=== PATIENT | male | born 1995 | race Two or more races ===

== ENCOUNTER 2016-07-13 12:46 | Emergency (ER) | payer OTHER ==
[2016-07-13 12:56] VITALS: TEMP 98.1
--- NOTE | 2016-07-13 12:58 | EDPHY ---
H & P Stated Complaint: CP starting at noon radiating to left neck, SOB Time Seen by Provider: 07/13/16 12:58 - Personal History Current Tetanus/Diphtheria Vaccine: Yes Current Tetanus Diphtheria and Acellular Pertussis (TDAP): Yes Tetanus Vaccine Date: < 10 years - Medical/Surgical History Hx Asthma: No Hx Chronic Respiratory Disease: No Hx Diabetes: No Hx Cardiac Disease: No Hx Renal Disease: No Hx Cirrhosis: No Hx Alcoholism: No Hx HIV/AIDS: No Hx Splenectomy or Spleen Trauma: No Other PMH: Denies - Social History Smoking Status: Never smoked Constitutional: Initial Vital Signs Temperature (C) 36.7 C 07/13/16 12:46 Heart Rate 81 07/13/16 12:46 Respiratory Rate 20 07/13/16 12:46 Blood Pressure 167/91 H 07/13/16 12:46 O2 Sat (%) 95 07/13/16 12:46 O2 Delivery Mode Room Air Allergies/Adverse Reactions: No Known Allergies Allergy (Verified 07/13/16 12:53) Home Medications: Medication Instructions Recorded Ibuprofen [Motrin] 800 mg PO Q8 #20 tab 07/13/16 Medical Decision Making ED Course/Re-evaluation: CHIEF COMPLAINT: Chest pain. HISTORY OF PRESENT ILLNESS: The patient is a 20-year-old male who presents via EMS with sharp left-sided chest pain that began an hour and a half ago and has been worsening since onset. The pain is worsened with lying flat and deep breathing. He denies recent sickness, cough, cold, recent trauma, shortness of breath, medication changes, or other complaints. REVIEW OF SYSTEMS: A 10 point review of systems was performed and is negative with the exception of the elements mentioned in the history of present illness. PHYSICAL EXAM: HR, BP, O2 Sat, RR. Temp noted General Appearance: Alert, well hydrated, appropriate, and non-toxic appearing. Head: Atraumatic without scalp tenderness or obvious injury Eyes: Pupils equal, round, reactive to light and accommodation, EOMI, no trauma , no injection. Ears: Clear bilaterally, no perforation, normal landmarks Nose: Atraumatic, no rhinorrhea, clear. Throat: There is no erythema or exudates, no lesions, normal tonsils, mucus membranes moist. Neck: Supple, 2+ carotid upstroke, nontender, no lymphadenopathy. Respiratory: No retractions, no distress, no wheezes, and no accessory muscle use. Lungs are clear to auscultation bilaterally. Cardiovascular: Regular rate and rhythm, no murmurs, or gallops. Bilateral carotid, radial, dorsalis pedis, and posterior tibial pulses intact. Good capillary refill all extremities. Friction rub when lying flat Gastrointestinal: Abdomen is soft, nontender, non-distended, no masses, no rebound, no guarding, no peritoneal signs. Musculoskeletal: Normal active ROM of all extremities, atraumatic. Neurological: Alert, appropriate, and interactive. The patient has normal DTRs and non-focal cranial nerves, motor, sensory, and cerebellar exam. Skin: No rashes, good turgor, no nodules on palpation. Past medical history: Denies. Past surgical history: Denies. Family history: No pertinent history. Social history: [employer] Student. DIAGNOSTICS/PROCEDURES/CRITICAL CARE TIME: The 12 lead EKG was interpreted by myself. See hard copy and/or "tracemaster" electronic copy for interpretation. Sinus rhythm. Early repolarization vs. diffuse ST elevation consistent with pericarditis. DIFFERENTIAL DIAGNOSIS: The differential diagnosis for the patient's chest pain included but was not limited to myocardial ischemia, pulmonary embolus, chest wall pain, pleural inflammation, and pulmonary infectious causes. MEDICAL DECISION MAKIN-year-old male presents with chest pain. When I lie him flat the pain is 7/10 and is resolves to a 3/10 when he sits forward. On exam I hear a friction rub that is worse when he lies flat. I am suspicious for pericarditis. An EKG has been ordered. An IV was established and labs ordered. 30mg IV Toradol administered for pain. EKG shows diffuse ST elevation consistent with pericarditis. He is also exhibiting some possible early repolarization. Chest x-ray ordered. Lab work is unremarkable. 1426: Consulted with Dr. Sher. He agrees with diffuse ST He does not recommend colchicine treatment for a first-time pericarditis. 1439: Dr. Sher has read the echocardiogram as negative. The patient will be discharged with cardiology follow up and Ibuprofen instructions. I discussed these results and the plan with him at this time. He is comfortable with the plan. - Data Points Laboratory Results: Laboratory Results 07/13/16 12:48 07/13/16 12:48 07/13/16 07/13/16 12:48 12:48 WBC 7.93 10^3/uL 10^3/uL (3.80-9.50) RBC 5.37 10^6/uL 10^6/uL (4.40-6.38) Hgb 16.7 g/dL g/dL (13.7-17.5) Hct 47.0 % % (40.0-51.0) MCV 87.5 fL fL (81.5-99.8) MCH 31.1 pg pg (27.9-34.1) MCHC 35.5 g/dL g/dL (32.4-36.7) RDW 13.5 % % (11.5-15.2) Plt Count 249 10^3/uL 10^3/uL (150-400) MPV 9.6 fL fL (8.7-11.7) Neut % (Auto) 58.8 % % (39.3-74.2) Lymph % (Auto) 30.1 % % (15.0-45.0) Gentry % (Auto) 8.2 % % (4.5-13.0) Eos % (Auto) 1.9 % % (0.6-7.6) Baso % (Auto) 0.6 % % (0.3-1.7) Nucleat RBC Rel Count 0.0 % % (0.0-0.2) Absolute Neuts (auto) 4.66 10^3/uL 10^3/uL (1.70-6.50) Absolute Lymphs (auto) 2.39 10^3/uL 10^3/uL (1.00-3.00) Absolute Monos (auto) 0.65 10^3/uL 10^3/uL (0.30-0.80) Absolute Eos (auto) 0.15 10^3/uL 10^3/uL (0.03-0.40) Absolute Basos (auto) 0.05 10^3/uL 10^3/uL (0.02-0.10) Absolute Nucleated RBC 0.00 10^3/uL 10^3/uL (0-0.01) Immature Gran % 0.4 % % (0.0-1.1) Immature Gran # 0.03 10^3/uL 10^3/uL (0.00-0.10) Sodium 141 mEq/L mEq/L (134-144) Potassium 3.9 mEq/L mEq/L (3.5-5.2) Chloride 100 mEq/L mEq/L (97-110) Carbon Dioxide 27 mEq/l mEq/l (22-31) Anion Gap 14 mEq/L mEq/L (8-16) BUN 14 mg/dL mg/dL (7-23) Creatinine 1.0 mg/dL mg/dL (0.7-1.3) Estimated GFR > 60 Glucose 87 mg/dL mg/dL (70-100) Calcium 10.0 mg/dL mg/dL (8.5-10.4) Troponin I < 0.012 ng/mL ng/mL (0-0.034) Medications Given: Discontinued Medications Ketorolac Tromethamine (Toradol) 30 mg IVP EDNOW ONE Stop: 07/13/16 13:30 Last Admin: 07/13/16 13:37 Dose: 30 mg Departure - Departure Disposition: Home, Routine, Self-Care Clinical Impression: Pericarditis Qualifiers: Pericarditis type: unspecified type Chronicity: acute Qualified Code(s): I30.9 - Acute pericarditis, unspecified Condition: Good Instructions: Acute Pericarditis (ED) Additional Instructions: Call Dr. Sher, cardiology, today to set up a follow up appointment. Take 800mg Ibuprofen 3 times daily as needed for pain. Avoid strenuous activity until your symptoms subside (usually 7-10 days). Return for any serious worsening of condition. Referrals: Reyes Sher MD [Medical Doctor] - As per Instructions Prescriptions: Ibuprofen [Motrin] 800 mg PO Q8 #20 tab Report Scribed for: Artis Muñoz Report Scribed by: Miles Macedo Date of Report: 07/13/16 Time of Report: 13:37
[2016-07-13] MEDS ORDERED: KETOROLAC 30 MG/1 ML SDV IVP ONE (13:29)
[2016-07-13 13:33] LABS: % IMMATURE GRANULYOCYTES 0.4 % (0.0-1.1); ABSOLUTE IMMATURE GRANULOCYTES 0.03 10^3/uL (0.00-0.10); ADD DIFF? NO; ADD MORPH? NO; ADD SCAN? NO; ATYPICAL LYMPHOCYTE FLAG 20 (0-99); FRAGMENT RBC FLAG 0 (0-99); HEMOGLOBIN 16.7 g/dL (13.7-17.5); LEFT SHIFT FLG 10 (0-99); LIPEMIA HEMOLYSIS FLAG 90 (0-99); MEAN CELL HEMOGLOBIN 31.1 pg (27.9-34.1); MEAN CELL HEMOGLOBIN CONCENTR. 35.5 g/dL (32.4-36.7); MEAN CELL VOLUME 87.5 fL (81.5-99.8); MEAN PLATELET VOLUME 9.6 fL (8.7-11.7); PLATELET CLUMPS FLAG 0 (0-99); PLATELET COUNT 249 10^3/uL (150-400); RED BLOOD CELL COUNT 5.37 10^6/uL (4.40-6.38); RED CELL DISTRIBUTION WIDTH 13.5 % (11.5-15.2)
--- NOTE | 2016-07-13 13:35 | CPEKG ---
Heart Rate: 74 RR Interval: 811 P-R Interval: 148 QRSD Interval: 94 QT Interval: 372 QTC Interval: 413 P Livingston: 67 QRS Livingston: 72 T Wave Livingston: 50 EKG Severity - BORDERLINE ECG - EKG Impression: SINUS RHYTHM EKG Impression: BORDERLINE Q WAVES IN LATERAL LEADS EKG Impression: INFERIOR Q WAVES, PROBABLY NORMAL VARIATION Electronically Signed By: Artis Muñoz 13-Jul-2016 21:07:19
[2016-07-13 13:39] LABS: ANION GAP 14 mEq/L (8-16); CARBON DIOXIDE 27 mEq/l (22-31); CHLORIDE 100 mEq/L (97-110); GLOMERULAR FILTRATION RATE > 60; GLUCOSE 87 mg/dL (70-100); POTASSIUM 3.9 mEq/L (3.5-5.2); SODIUM 141 mEq/L (134-144)
[2016-07-13 13:51] LABS: TROPONIN I < 0.012 ng/mL (0-0.034)
--- NOTE | 2016-07-13 14:39 | ECHO ---
[id number] + + [id number] : : [place] [address] : : [phone] + Adult Echocardiographic Report + ----+ :Name: LUIS CARLOS SARKAR MStudy Date: 07/13/2016 02:08 PM : : Hospital Admission Number: [id number] Location : ER: :: 1995 Gender: Male : :Age: 20 yrs Race: OTH : :Reason For Study: Eval LV Fx : :History: Chest Pain : + ----+ MMode/2D Measurements \T\ Calculations IVSd: 0.78 cm LVIDd: 4.6 cm FS: 40.5 % Ao root diam: 3.0 cm LVPWd: 0.86 cm LVIDs: 2.7 cm EDV(Teich): 96.8 ml ACS: 2.0 cm ESV(Teich): 27.8 ml EF(Teich): 71.3 % Normal Measurement Values: + + :LVIDd (3.5-5.7cm) IVSd (0.6-1.1cm) LVPWd (0.6-1.1cm) Aortic Root (2.0-3.7cm)Left Atrium (1.5-4.0cm): :LV Vol(d) (76-115ml) LV Vol(s) (29-48ml) Ejec Fraction (50-65%)PV Ludwin (0.6- 1.2m/s) TV Ludwin (0.4-1.0m/s) : :MV E Ludwin (0.8-1.0m/s)MV A Ludwin (0.3-1.0m/s)LVOT Ludwin (0.7-1.2m/s) Asc Ao Ludwin ( 0.9-1.8m/s) : + + Doppler Measurements \T\ Calculations MV E max ludwin: 90.3 cm/sec PA V2 max: 103.0 cm/sec MV A max ludwin: 40.5 cm/sec PA max P.2 mmHg MV E/A: 2.2 Left Ventricle The left ventricle is normal in size and function. There is normal left ventricular wall thickness. The left ventricular ejection fraction is normal. Ejection Fraction = 72%. The left ventricular wall motion is normal. Right Ventricle The right ventricle is normal in size and function. Atria The left atrial size is normal. Mitral Valve The mitral valve is normal in structure and function. There is no evidence of mitral valve prolapse. There is no mitral valve stenosis. There is no mitral regurgitation noted. Tricuspid Valve Normal tricuspid valve. No tricuspid regurgitation. Aortic Valve The aortic valve is normal in structure and function. The aortic valve is trileaflet. There is no aortic stenosis. There is no aortic insufficiency. Pulmonic Valve The pulmonic valve is normal in structure and function. There is no pulmonic valvular regurgitation. Great Vessels The aortic root is normal size. Pericardium/Pleural There is no pericardial effusion. Conclusion A complete two-dimensional transthoracic echocardiogram was performed (2D, M-mode, Doppler and color flow Doppler). The left ventricle is normal in size and function. The left ventricular ejection fraction is normal. Ejection Fraction = 72%. The left ventricular wall motion is normal. The right ventricle is normal in size and function. The left atrial size is normal. The aortic valve is normal in structure and function. The aortic valve is trileaflet. There is no pericardial effusion. Final Reading Physician: Johan Morales signed on 07/13/2016 02:37 PM Ordering Physician: Artis Muñoz Performed By: Bipin Anderson RDCS
[2016-07-13] MEDS ORDERED: DEXAMETHASONE 10 MG/ML VIAL IVP ONE ×2 (14:45)
[2016-07-13 14:53] VITALS: BP 139/64; PULSE 70; RESP 16; O2SAT 98
== END 2016-07-13 14:55 | disposition home or self-care (01) ==
LOC: EDUNIT#
DX: I30.9 Acute pericarditis, unspecified (principal)
CPT/HCPCS: 96374; J1885